=== PATIENT | female | born 1995 | race Two or more races ===

== ENCOUNTER 2025-03-25 23:08 | Observation (INO) | payer MEDICAID, OTHER ==
[~2025-03-25] VITALS: Ht 149.9 cm; Wt 67.1 kg
--- NOTE | 2025-03-26 00:11 | DVH ---
LIMITED SURVEY CLINICAL HISTORY: pt fell and is now having lower abdominal pain COMPARISON: None TECHNIQUE: Real-time grayscale, color flow and M-mode imaging of the gravid uterus is performed. FINDINGS: Single living intrauterine gestation. Cephalic presentation. heart rate 160 beats per minute. The placenta is anterior. No definite evidence of abruption or previa at this time. Amniotic fluid index 12.2 cm. Retail District Manager reports good movement on real-time imaging. IMPRESSION: Single living intrauterine as above.
[2025-03-26 00:15] VITALS: TEMP 99
[2025-03-26] MEDS: ACETAMINOPHEN 500 MG TAB or CAP PO ONE (00:15)
--- NOTE | 2025-03-26 05:24 | DVHDS2 ---
Physician Discharge Progress N Final Diagnosis: iup at 33wks tail pain Operations or Procedures: Operations or Procedures nst reactive reviwed,sono Condition on Discharge: Good Disposition: Home Discharge Instructions: Diet: Regular Activity: Light activity Medications: na Follow Up Care: Specialist: 1w Discharge Statement: "Patient was advised to return to the ER or call 911 if any headaches, dizziness, shortness of breath, chest pain, abdominal pain, bleeding, fevers, or worsening of medical condition. Patient was counseled about treatment plan, medications, possible side effects, patientverbalized understanding. All questions were answered to the best of my ability. This discharge took greater then 30 minutes in planning, reviewing documentatio n, counseling the patient, and discussing with other team members." Visit Coding OBGYN Date of Service: Mar 25, 2025 Billing Provider: CARLY MCFADDEN DO CASCADE OPERATOR Common Visit Codes: 99676-SKVQIWS OBS CARE (HIGH) CASCADE OPERATOR Procedure Codes: 53572-51- NON-STRESS TEST CARLY MCFADDEN DO Mar 26, 2025 05:24
== END 2025-03-26 01:23 | disposition short-term general hospital (02) ==
LOC: EDBD 23:08 → LDRP 23:08
PROVIDERS: ADMIT Obstetrics & Gynecology; ATTEND Obstetrics & Gynecology
DX: O26.893 Other specified pregnancy related conditions, third trimester (principal); R10.2 Pelvic and perineal pain; Z3A.33 33 weeks gestation of pregnancy; Z79.899 Other long term (current) drug therapy; Z98.890 Other specified postprocedural states
CPT/HCPCS: 59025; 76815; 81002; 94760; G0378

== ENCOUNTER 2025-03-26 01:35 | Emergency (ER) | payer MEDICAID, OTHER ==
[~2025-03-26] VITALS: Ht 149.9 cm; Wt 67.2 kg
[2025-03-26 01:52] VITALS: BP 96/60; PULSE 86; RESP 20; TEMP 98.7; O2SAT 97
--- NOTE | 2025-03-26 01:53 | ED.PDOC ---
Back pain HPI Time Seen by MD: 01:47 Reviewed Notes: Nurses Notes, Medications, Allergies Allergies: Coded Allergies: NO KNOWN ALLERGIES (Unverified , 03/25/25) Home Meds No Active Prescriptions or Reported Meds Information Source: Patient Physical Exam General Appearance: No Apparent Distress, Normal HEENT: Pharynx Normal Neck: Full Range of Motion, Non-Tender Respiratory: Lungs Clear, No Respiratory Distress, Normal Breath Sounds Cardiovascular: No Edema, No JVD, No Murmur, No Gallop, Normal Peripheral Pulses, Regular Rate/Rhythm Breast Exam: Deferred Gastrointestinal: No Organomegaly, Non Tender, No Pulsatile Mass, Normal Bowel Sounds, Soft Genitalia: Deferred Pelvic: Deferred Rectal: Deferred Extremities: Normal capillary refill, Normal inspection, Normal range of motion, Non-tender, No pedal edema Musculoskeletal : Apperance: Normal Neurologic: Alert, No Motor Deficits, Normal Affect, Normal Mood, No Sensory Deficits Cerebellar Function: Normal Reflexes: Normal Skin: Dry, Normal Color, Warm Lymphatic: No Adenopathy Was a procedure done? Was a procedure done?: No Back Pain Differential Dx Differential Diagnosis: Fracture, Musculoskeletal Pain Time of 1ST Reevaluation: 01:53 Reevaluation 1ST: Improved Time of 2ND Reevaluation: 01:53 Reevaluation 2ND: Improved Patient Education/Counseling: Diagnosis, Treatment, Prognosis, Need For Follow Up Family Education/Counseling: Diagnosis, Treatment, Prognosis, Need For Follow Up Departure 1 Departure Time of Disposition: 01:51 Impression: Primary Impression: Contusion of pelvis Qualified Codes: S30.0XXA - Contusion of lower back and pelvis, initial encounter Additional Impression: 33 weeks gestation of Disposition: 01 HOME / SELF CARE / HOMELESS Condition: Stable e-Prescriptions No Active Prescriptions or Reported Meds Discharged With: Spouse Critical Care Note Critical Care Time?: No Stability Stability form required: BAMBI Sargent Mar 26, 2025 01:53
== END 2025-03-26 02:19 | disposition home or self-care (01) ==
LOC: ER 01:35
DX: O9A.213 Injury, poisoning and certain other consequences of external causes complicating pregnancy, third trimester (principal); S30.0XXA Contusion of lower back and pelvis, initial encounter; Z3A.33 33 weeks gestation of pregnancy; X58.XXXA Exposure to other specified factors, initial encounter; Y93.89 Activity, other specified; Y92.89 Other specified places as the place of occurrence of the external cause; Y99.8 Other external cause status